=== PATIENT | female | born 1990 | race African-American/Black ===

== ENCOUNTER 2016-11-21 00:05 | Emergency (ER) | payer OTHER ==
[~2016-11-21] VITALS: Ht 165.1 cm; Wt 127.0 kg
[~2016-11-21 00:05] MED LIST: CLOTRIMAZOLE15 GM TOP; ESCITALOPRAM OXA5 MG PO; IMITREX50 M1 PO; INDERAL LA60 M1 PO; KEFLEX500 M1 PO; MONTELUKAST SOD10 M1 PO; PROVENTIL HFA6.7 GM INH
--- NOTE | 2016-11-21 01:31 | ED GI/GU/ABDOMINAL COMPLAINT ---
History of Present Illness General Chief Complaint: General Adult Stated Complaint: WANTS STD TESTING Source: patient, old records Exam Limitations: no limitations Vital Signs & Intake/Output Vital Signs & Intake/Output Vital Signs Date Time Temp Pulse Resp B/P Pulse O2 O2 Flow FiO2 Ox Delivery Rate 11/21 0025 98.5 78 18 203/99 100 Room Air Allergies Coded Allergies: No Known Allergies (03/30/16) Reconcile Medications Albuterol Sulfate (Proventil Hfa) 6.7 GM HFA.AER.AD 2 PUF INH Q4 BREATHING PROBLEMS (Reported) Cephalexin (Keflex) 500 MG CAPSULE 1 CAP PO TID RASH Clotrimazole 15 GM CREAM..G. 1 ABBY TOP QAMPM RASH apply to affected area(s) Escitalopram Oxalate 5 MG TABLET 1 TAB PO DAILY MENTAL HEALTH (Reported) Montelukast Sodium 10 MG TABLET 1 TAB PO DAILY ALLERGIES (Reported) Propranolol LA (Inderal LA) 60 MG CAP.SA.24H 1 CAP PO DAILY HEADACHE ( Reported) Sumatriptan Succinate (Imitrex) 50 MG TABLET 1 TAB PO AD PRN HEADACHE ( Reported) Triage Note: PT TO ED REQUESTING STD CHECK. DENIES VAGINAL DISCHARGE/PAIN. STATES SEXUAL INTERCOARSE "FEELS DIFFERENT" PT EVALUATED BY DR CEJA Triage Nurses Notes Reviewed? yes LMP (ages 10-50): now ? n Is pt currently ? No Onset: 3 weeks Duration: week(s): Timing: recent history Quality/Severity: mild Location: vaginal Radiation: no radiation Activities at Onset: sexual activity Prior Abdominal Problems: none Sexually Active: Yes Last Time You Were Sexual: less than 2 months ago Sexual Orientation: Heterosexual Use of Protection: No No Modifying Factors: none HPI: 3 weeks prior to admission 3 weeks prior to admission patient reports having unprotected sex that did not feel right. Since this time she's had an argument with her significant other and feel she needs to be checked for sexually transmitted disease. She denies fever chills nausea vomiting diarrhea abdominal pain chest pain shortness of breath headache dysuria rash bleeding. 1000 LMP current. Past History Travel History Traveled to [place] past 21 day No Medical History Any Pertinent Medical History? 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 No Review of Systems Review of Systems Constitutional: Reports: no symptoms. EENTM: Reports: no symptoms. Respiratory: Reports: no symptoms. Cardiovascular: Reports: no symptoms. GI: Reports: no symptoms. Genitourinary: Reports: see HPI. Musculoskeletal: Reports: no symptoms. Skin: Reports: no symptoms. Neurological/Psychological: Reports: no symptoms. Hematologic/Endocrine: Reports: no symptoms. Immunologic/Allergic: Reports: no symptoms. All Other Systems: Reviewed and Negative Physical Exam Physical Exam General Appearance: well developed/nourished, alert, awake, anxious, comfortable , obese Head: atraumatic, normal appearance Eyes: Bilateral: normal appearance, PERRL, EOMI, normal inspection. Ears, Nose, Throat, Mouth: hearing grossly normal, moist mucous membrane Neck: normal inspection, supple, full range of motion, normal alignment Respiratory: normal breath sounds, chest non-tender, no respiratory distress, quiet respiration, lungs clear Cardiovascular: regular rate/rhythm, normal peripheral pulses, norml femoral pulses equa Peripheral Pulses: 4+ carotid (R), 4+ carotid (L) Gastrointestinal: normal bowel sounds, soft, non-tender, no organomegaly Pelvic: normal external exam, blood Back: normal inspection, normal range of motion Extremities: normal range of motion, no ligament instability Neurologic/Psych: no motor/sensory deficits, awake, alert, oriented x 3, normal gait, normal mood/affect Skin: intact, normal color, warm/dry Core Measures ACS in differential dx? No Severe Sepsis Present: No Septic Shock Present: No Progress Differential Diagnosis: PID/cervicitis, UTI/pyelo Plan of Care: Orders Procedure Date/time Status CHLAMYDIA-GC DNA PROBE 11/21 28 Active URINE 11/21 28 Complete URINALYSIS 11/21 28 Complete Laboratory Tests 11/21/16 0050: Urine Color PINK H, Urine Clarity HAZY H, Urine pH 6.5, Ur Specific [place] 1.025, Urine Protein 30 H, Urine Ketones NEG, Urine Nitrite NEG, Urine Bilirubin NEG, Urine Urobilinogen 0.2, Ur Leukocyte Esterase TRACE H, Ur Microscopic SEDIMENT EXAMINED, Urine RBC 25-50 H, Urine WBC 1-3 H, Ur Epithelial Cells MOD H, Urine Bacteria RARE H, Urine Hemoglobin LARGE H, Urine Glucose NEG, Urine Test NEGATIVE Microbiology 11/21 109 GENITAL: GC DNA Probe - RECD 11/21 109 GENITAL: Chlamydia DNA Probe (ZOIE) - RECD Initial ED EKG: none Departure Departure Time of Disposition: 129 Disposition: HOME OR SELF CARE Condition: Stable Clinical Impression Primary Impression: Screening for STD (sexually transmitted disease) Referrals: UNKNOWN (PCP) Departure Forms: Customer Survey General Discharge Information
[2016-11-21 01:49] VITALS: BP 168/89
== END 2016-11-21 01:51 ==
LOC: ERH 00:05
DX: Z20.2 Contact with and (suspected) exposure to infections with a predominantly sexual mode of transmission (principal)
CPT/HCPCS: 81001; 81025; 87491; 87591; 96372; J0456; J0696

== ENCOUNTER 2018-03-22 13:36 | Emergency (ER) | payer OTHER ==
[~2018-03-22] VITALS: Ht 162.6 cm; Wt 117.9 kg
[~2018-03-22 13:36] MED LIST changes: +AUGMENTIN 875-1 EACH PO; +FLONASE ALLERG9.9 ML NASB; +LOTRISONE CREAM15 G1 TOP; +PREDNISONE50 M1 PO; +PROAIR HFA8.5 GM INH
--- NOTE | 2018-03-22 16:42 | ED GI/GU/ABDOMINAL COMPLAINT ---
History of Present Illness General Chief Complaint: Female Urogenital Problems Stated Complaint: PT HAS PAIN IN THE PRIVATE AREA Source: patient Exam Limitations: no limitations Vital Signs & Intake/Output Vital Signs & Intake/Output Vital Signs Date Time Temp Pulse Resp B/P B/P Pulse O2 O2 Flow FiO2 Mean Ox Delivery Rate 03/22 1757 99 Room Air 03/22 1751 80 18 172/104 100 Room Air 03/22 1344 98.0 76 18 157/94 99 Room Air Allergies Coded Allergies: No Known Drug Allergies (Intermediate, NONE 03/22/18) Reconcile Medications Albuterol Sulfate 2.5 MG/3 ML (0.083 %) VIAL.NEB 1 Vial INH/LESLIE AD PRN ASTHMA (Reported) Albuterol Sulfate (Proair Hfa) 90 MCG HFA.AER.AD 2 PUF INH Q4-6 PRN PRN COUGH, SOB Bupropion HCl (Bupropion XL) (Unknown Strength) TAB.ER.24H (Unknown Dose) UNKNOWN (Reported) Fluconazole (Diflucan) 150 MG TABLET 1 TAB PO ONCE YEAST TAKE SECOND TAB AFTER COURSE OF ANTIBITIOCS IF SYMPTOMS PERSIST Fluticasone Propionate 50 MCG/ACTUATION SPRAY.SUSP 2 SPRAY NASB PRN ALLERGIES (Reported) Hydrochlorothiazide 25 MG TABLET 1 TAB PO DAILY BP (Reported) Triage Note: C/O GREEN VAGINAL DISCHARGE WITH ITCHING AND LOWER ABDOMINAL DISCOMFORT. DISCOMFORT X 5 DAYS. LMP: 02/24. Triage Nurses Notes Reviewed? yes ? n Is pt currently ? No Onset: Gradual Duration: day(s): Timing: recent history Quality/Severity: moderate HPI: 27 showed female presents emergency department complaining of green vaginal discharge for the past 4 days. Patient is concerned about sexually transmitted diseases. She states that she has one sexual partner however they were on a break for time. And she is unsure if he could've given her something. Patient reports very mild itching sensation to labia. She denies abdominal pain, dysuria, hematuria, fevers, chills, vomiting. (Toyin LAUGHLIN,Gayatri White) Past History Travel History Traveled to [place] past 21 day No Medical History Any Pertinent Medical History? 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 No (Gayatri Lawson) Review of Systems Review of Systems Constitutional: Reports: no symptoms. EENTM: Reports: no symptoms. Respiratory: Reports: no symptoms. Cardiovascular: Reports: no symptoms. GI: Reports: no symptoms. Genitourinary: Reports: see HPI. Musculoskeletal: Reports: no symptoms. Skin: Reports: no symptoms. Neurological/Psychological: Reports: no symptoms. Hematologic/Endocrine: Reports: no symptoms. Immunologic/Allergic: Reports: no symptoms. All Other Systems: Reviewed and Negative (Gayatri Lawson) Physical Exam Physical Exam General Appearance: well developed/nourished, no apparent distress, alert, awake Head: atraumatic, normal appearance Eyes: Bilateral: normal appearance. Ears, Nose, Throat, Mouth: hearing grossly normal Neck: normal inspection, supple, full range of motion Respiratory: normal breath sounds, no respiratory distress, lungs clear Cardiovascular: regular rate/rhythm Gastrointestinal: normal bowel sounds, soft, non-tender, no organomegaly Pelvic: normal external exam, green and white clumping discharge, no lesions or erythema, no cervical motion tenderness Back: normal inspection, normal range of motion Extremities: normal range of motion Neurologic/Psych: awake, alert, oriented x 3 Skin: intact, normal color, warm/dry Core Measures ACS in differential dx? No Sepsis Present: No Sepsis Focused Exam Completed? No (Gayatri Lawson) Progress Differential Diagnosis: ectopic , intrauterine , PID/ cervicitis, UTI/pyelo, vaginitis, STI Plan of Care: Orders Procedure Date/time Status VDRL 03/22 1728 Active HIV (Reflex to HIVCQ) 03/22 1728 Active HEPATITIS PANEL 03/22 1728 Active COMPREHENSIVE METABOLIC PANEL 03/22 1728 Active CBC WITHOUT DIFFERENTIAL 03/22 1728 Complete CULTURE,URINE 03/22 1643 Active TRICHOMONAS 03/22 1643 Complete POTASSIUM HYDROXIDE (MARIBEL) 03/22 164 Complete GENITAL CULTURE 03/22 1643 Active CHLAMYDIA-GC DNA PROBE 03/22 164 Active URINE 03/22 1643 Complete URINALYSIS 03/22 1643 Complete Current Medications Sig/Angie Start time Last Medication Dose Stop Time Status Admin Metronidazole 2,000 MG ONCE ONE 03/22 1915 UNVr (Flagyl) 03/22 1916 Laboratory Tests 03/22/18 1835: RPR Titer/FTA Pending 03/22/181739: Urinalysis MOD H, Urine Color YEL, Urine Clarity HAZY H, Urine pH 7.0, Ur Specific [place] 1.020, Urine Protein NEG, Urine Ketones NEG, Urine Nitrite NEG, Urine Bilirubin NEG, Urine Urobilinogen 0.2, Ur Leukocyte Esterase NEG, Ur Microscopic SEDIMENT EXAMINED, Urine RBC RARE, Urine WBC 1-3 H, Ur Epithelial Cells RARE, Urine Bacteria RARE H, Urine Hemoglobin NEG, Urine Glucose NEG, Urine Test NEGATIVE 03/22/181734: Anion Gap 11, Estimated GFR > 60, BUN/Creatinine Ratio 17.1, Glucose 69, Calcium 9.4, Total Bilirubin 0.2, AST 31, ALT 27, Alkaline Phosphatase 65, Total Protein 7.8, Albumin 4.1, Globulin 3.7, Albumin/Globulin Ratio 1.1, CBC w Diff NO MAN DIFF REQ, RBC 4.67, MCV 76.2 L, MCH 24.1 L, MCHC 31.7 L, RDW 16.0 H, MPV 8.0 , Gran % 48.8, Lymphocytes % 38.9, Monocytes % 8.8, Eosinophils % 2.9, Basophils % 0.6, Absolute Granulocytes 3.9, Absolute Lymphocytes 3.1, Absolute Monocytes 0.7 H, Absolute Eosinophils 0.2, Absolute Basophils 0, Hepatitis A IgM Ab Pending, Hep Bs Antigen Pending, Hep B Core IgM Ab Conf Pending, Hepatitis C Antibody Pending, HIV 1&2 Ab Western Blot Pending Microbiology 03/22 1740 URINE ROUT: Urine Culture - RECD 03/22 1709 GENITAL: GC DNA Probe - RECD 03/22 1709 GENITAL: Chlamydia DNA Probe (ZOIE) - RECD 03/22 1709 GENITAL: MARIBEL Preparation - COMP YEAST MOLD 03/22 1709 GENITAL: Trichomonas Preparation - COMP Trichomonas species 03/22 1709 GENITAL: Genital Culture - RECD Patient is requesting full STD panel including labs. Speculum exam is significant for green and white vaginal discharge. Swabs are positive for yeast and Trichomonas. Patient medicated with 2 g metronidazole for Trichomonas and prescribed Diflucan for yeast. Remainder of STD panel is pending, we will call patient if results are abnormal. Patient in no acute distress, no abdominal tenderness, no cervical motion tenderness to indicate acute PID. Patient is nontoxic appearing, vital signs are stable. The patient agrees with the plan of care. Initial ED EKG: none (Gayatri Lawson) Departure Departure Disposition: HOME OR SELF CARE Condition: Stable Clinical Impression Primary Impression: Trichomonas vaginalis (TV) infection Secondary Impressions: Encounter for assessment of STD exposure, Vaginal discharge, Vaginal yeast infection Referrals: Unknown (PCP/Family) Additional Instructions: Take diflucan tab. Take second dose if no resolution of symptoms in 2-3 days take second tab. We will call you in two days if results of your blood tests or cultures are abnormal. 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 REturn if you have worsening symptoms or concerns. Please note that there might be incidental findings in your evaluation that are unrelated to the current emergency department visit. Please notify your primary care doctor about this emergency department visit in order to obtain and review all of the testing performed so that these incidental findings can be monitored as needed. If you had an x-ray performed, please understand that some fractures may not be seen on the initial set of x-rays. If your symptoms persist you might need a repeat set of x-rays to check for such a fracture. If you had a laceration evaluated, please understand that foreign bodies such as glass or wood may not be visible to the naked eye or on plain x-rays. If the wound becomes red, swollen, increasingly more painful or if there is any drainage from the wound, please have it reevaluated by a physician for the possibility of a retained foreign body. If you're unable to follow up as outlined in the discharge instructions please return to the emergency department. Thank you for choosing the [facility] Emergency Department for your care. It was a pleasure to serve you today. Departure Forms: Customer Survey General Discharge Information Prescriptions: Current Visit Scripts Fluconazole (Diflucan) 1 TAB PO ONCE #2 TAB TAKE SECOND TAB AFTER COURSE OF ANTIBITIOCS IF SYMPTOMS PERSIST (Gayatri Lawson) PA/GIVER Co-Sign Statement Statement: ED Attending supervision documentation- [] I saw and evaluated the patient. I have also reviewed all the pertinent lab results and diagnostic results. I agree with the findings and the plan of care as documented in the PA's/GIVER's documentation. [x] I have reviewed the ED Record and agree with the PA's/GIVER's documentation. [] Additions or exceptions (if any) to the PAs/GIVER's note and plan are summarized below: [] (Wade Hinds DO)
[2018-03-22] MEDS ORDERED: BUPROPION XL300 M1 (17:11)
[2018-03-22] MEDS ORDERED: HYDROCHLOROTHIA25 M1 PO (17:12)
[2018-03-22] MEDS ORDERED: FLUTICASONE PRO16 GM NASB (17:13)
[2018-03-22] MEDS ORDERED: ALBUTEROL2.5 MG/3 M INH/SOL (17:14)
[2018-03-22 17:51] VITALS: BP 172/104
[2018-03-22 17:59] LABS: ABSOLUTE BASOPHIL COUNT 0 /CUMM (0.0-0.2); ABSOLUTE EOSINOPHIL COUNT 0.2 /CUMM (0.0-0.7); ABSOLUTE GRANULOCYTE CT 3.9 /CUMM (1.4-6.5); ABSOLUTE LYMPH COUNT 3.1 /CUMM (1.2-3.4); ABSOLUTE MONOCYTE COUNT 0.7 /CUMM (0.10-0.60); BASOPHIL % 0.6 % (0.0-2.0); EOSINOPHIL % 2.9 % (0-5); GRANULOCYTE % 48.8 % (42.2-75.2); HEMATOCRIT 35.5 % (37-47); MEAN CORPUSCULAR HGB 24.1 PG (27.0-31.0); MEAN CORPUSCULAR HGB CONC 31.7 G/DL (33.0-37.0); MEAN CORPUSCULAR VOLUME 76.2 FL (81.0-99.0); PLATELET COUNT 374 /CUMM (130-400); RED BLOOD CELL CT 4.67 /CUMM (4.20-5.40)
[2018-03-22] MEDS ORDERED: DIFLUCAN150 M1 PO (19:10)
== END 2018-03-22 19:49 ==
LOC: ERH 13:36
PROVIDERS: Physician Assistant
DX: A59.01 Trichomonal vulvovaginitis (principal); B37.3 Candidiasis of vulva and vagina; N89.8 Other specified noninflammatory disorders of vagina
CPT/HCPCS: 87070; 81001; 81025; 87071; 87086; 87389; 87491; 87591

== ENCOUNTER 2018-05-25 13:36 | Emergency (ER) | payer OTHER ==
[~2018-05-25] VITALS: Ht 165.1 cm; Wt 117.9 kg
[~2018-05-25 13:36] MED LIST changes: +ALBUTEROL2.5 MG/3 M INH/SOL; +BUPROPION XL300 M1; +DIFLUCAN150 M1 PO; +FLUTICASONE PRO16 GM NASB; +HYDROCHLOROTHIA25 M1 PO
--- NOTE | 2018-05-25 13:39 | ED SKIN/ALLERGY COMPLAINT ---
History of Present Illness General Chief Complaint: Skin Rash/ Abcess Stated Complaint: BUG BITE Source: patient Exam Limitations: no limitations Vital Signs & Intake/Output Vital Signs & Intake/Output Vital Signs Date Time Temp Pulse Resp B/P B/P Pulse O2 O2 Flow FiO2 Mean Ox Delivery Rate 05/25 1342 97.8 71 18 158/86 98 Room Air Allergies Coded Allergies: No Known Drug Allergies (Intermediate, NONE 03/22/18) Reconcile Medications Albuterol Sulfate 2.5 MG/3 ML (0.083 %) VIAL.NEB 1 Vial INH/LESLIE AD PRN ASTHMA (Reported) Albuterol Sulfate (Proair Hfa) 90 MCG HFA.AER.AD 2 PUF INH Q4-6 PRN PRN COUGH, SOB Bupropion HCl (Bupropion XL) (Unknown Strength) TAB.ER.24H (Unknown Dose) UNKNOWN (Reported) Fluconazole (Diflucan) 150 MG TABLET 1 TAB PO ONCE YEAST TAKE SECOND TAB AFTER COURSE OF ANTIBITIOCS IF SYMPTOMS PERSIST Fluticasone Propionate 50 MCG/ACTUATION SPRAY.SUSP 2 SPRAY NASB PRN ALLERGIES (Reported) Hydrochlorothiazide 25 MG TABLET 1 TAB PO DAILY BP (Reported) Triage Nurses Notes Reviewed? yes Onset: Abrupt Duration: hour(s): Timing: single episode today Severity: moderate Location: extremities HPI: 27YO female presents to ED complaining of bug bite detected at 9AM while patient was at work. PAtient reports seeing bump on right forearm, she notes surrounding redness and itchiness. She states her whole body feels itchy. The patient never saw a bug or tick. She denies known allergies, dyspnea, throat closing sensation. (Toyin LAUGHLIN,Gayatri White) Past History Travel History Traveled to [place] past 21 day No Medical History Any Pertinent Medical History? 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 No (Gayatri Lawson) Review of Systems Review of Systems Constitutional: Reports: no symptoms. EENTM: Reports: no symptoms. Respiratory: Reports: no symptoms. Cardiovascular: Reports: no symptoms. GI: Reports: no symptoms. Genitourinary: Reports: no symptoms. Musculoskeletal: Reports: no symptoms. Skin: Reports: see HPI. Neurological/Psychological: Reports: no symptoms. Hematologic/Endocrine: Reports: no symptoms. Immunologic/Allergic: Reports: no symptoms. All Other Systems: Reviewed and Negative (Gayatri Lawson) Physical Exam Physical Exam General Appearance: well developed/nourished, no apparent distress, alert, awake Head: atraumatic, normal appearance Eyes: Bilateral: normal appearance. Ears, Nose, Throat: hearing grossly normal Neck: normal inspection, supple, full range of motion Respiratory: normal breath sounds, no respiratory distress, lungs clear Cardiovascular: regular rate/rhythm Back: normal inspection, normal range of motion Extremities: right anterior forearm: single <1cm blister with quater sized area of erythema surrounding, no induration, nontender Neurologic/Psych: awake, alert, oriented x 3 Skin: see description above (Gayatri Lawson) Progress Differential Diagnosis: abscess/cellulitis, allergic reaction, contact dermatitis, urticaria, blister Plan of Care: Physical exam findings show a blister with mild surrounding erythema. Does not appear consistent with an insect bite. Possible exposure to a chemical while at work. Possible allergic type reaction given the patient's generalized itching sensation. Will initiate Benadryl PO and patient apply bacitracin and Band-Aid. Patient will return if worsening symptoms or concerns. She is in no acute distress. She agrees with plan of care. (Gayatri Lawson) Departure Departure Disposition: HOME OR SELF CARE Condition: Stable Clinical Impression Primary Impression: Blister Referrals: Unknown (PCP/Family) Additional Instructions: Apply neosporin/bacitracin and keep covered with a bandaid. Do not popped this blister. Take Benadryl 25-50 mg every 6 hours for itching. If you notice spreading rash or redness please return for further evaluation. Please note that there might be incidental findings in your evaluation that are unrelated to the current emergency department visit. Please notify your primary care doctor about this emergency department visit in order to obtain and review all of the testing performed so that these incidental findings can be monitored as needed. If you had an x-ray performed, please understand that some fractures may not be seen on the initial set of x-rays. If your symptoms persist you might need a repeat set of x-rays to check for such a fracture. If you had a laceration evaluated, please understand that foreign bodies such as glass or wood may not be visible to the naked eye or on plain x-rays. If the wound becomes red, swollen, increasingly more painful or if there is any drainage from the wound, please have it reevaluated by a physician for the possibility of a retained foreign body. If you're unable to follow up as outlined in the discharge instructions please return to the emergency department. Thank you for choosing the [facility] Emergency Department for your care. It was a pleasure to serve you today. Departure Forms: Customer Survey General Discharge Information (Toyin LAUGHLIN,Gayatri White) PA/VESSEL ORDINARY SEAMAN Co-Sign Statement Statement: ED Attending supervision documentation- [] I saw and evaluated the patient. I have also reviewed all the pertinent lab results and diagnostic results. I agree with the findings and the plan of care as documented in the PA's/VESSEL ORDINARY SEAMAN's documentation. [x] I have reviewed the ED Record and agree with the PA's/VESSEL ORDINARY SEAMAN's documentation. [] Additions or exceptions (if any) to the PAs/VESSEL ORDINARY SEAMAN's note and plan are summarized below: [] (Samra GOLD, Mark)
[2018-05-25 13:42] VITALS: BP 158/86
== END 2018-05-25 14:09 ==
LOC: ERH 13:36
DX: S50.821A Blister (nonthermal) of right forearm, initial encounter (principal); I10 Essential (primary) hypertension; J45.909 Unspecified asthma, uncomplicated; W57.XXXA Bitten or stung by nonvenomous insect and other nonvenomous arthropods, initial encounter; Y93.89 Activity, other specified; Y92.9 Unspecified place or not applicable